=== PATIENT | female | born 1990 | race Caucasian/White ===

== ENCOUNTER 2021-05-10 15:05 | Outpatient (CLI) | payer OTHER ==
[~2021-05-10 15:05] MED LIST: FLAGYL500 MG PO; IBUPROFEN600 MG PO; MACROBID 100 M100 MG PO; PYRIDIUM200 MG PO
== END 2021-05-10 18:48 | disposition home or self-care (01) ==
LOC: GENOP 15:05
DX: O99.891 Other specified diseases and conditions complicating pregnancy (principal); R10.30 Lower abdominal pain, unspecified; M54.9 Dorsalgia, unspecified; O99.352 Diseases of the nervous system complicating pregnancy, second trimester; G43.909 Migraine, unspecified, not intractable, without status migrainosus; O99.342 Other mental disorders complicating pregnancy, second trimester; F32.9 Major depressive disorder, single episode, unspecified; O99.332 Smoking (tobacco) complicating pregnancy, second trimester; F17.290 Nicotine dependence, other tobacco product, uncomplicated; O99.212 Obesity complicating pregnancy, second trimester; E66.01 Morbid (severe) obesity due to excess calories; Z87.440 Personal history of urinary (tract) infections; Z88.5 Allergy status to narcotic agent; Z79.899 Other long term (current) drug therapy; Z3A.27 27 weeks gestation of pregnancy
CPT/HCPCS: 59025; 81001; 82731; 96372

== ENCOUNTER 2021-05-27 15:08 | Outpatient (CLI) | payer OTHER | END 2021-05-27 20:41 | disposition home or self-care (01) | LOC: GENOP 15:08 | DX: O47.03 False labor before 37 completed weeks of gestation, third trimester (principal); O99.343 Other mental disorders complicating pregnancy, third trimester; F32.9 Major depressive disorder, single episode, unspecified; O99.353 Diseases of the nervous system complicating pregnancy, third trimester; G43.909 Migraine, unspecified, not intractable, without status migrainosus; O99.213 Obesity complicating pregnancy, third trimester; E66.9 Obesity, unspecified; O99.323 Drug use complicating pregnancy, third trimester; F11.20 Opioid dependence, uncomplicated; O99.333 Smoking (tobacco) complicating pregnancy, third trimester; F17.290 Nicotine dependence, other tobacco product, uncomplicated; Z87.440 Personal history of urinary (tract) infections; Z88.5 Allergy status to narcotic agent; Z3A.29 29 weeks gestation of pregnancy | CPT/HCPCS: 96372; G0463; J3105 ==

== ENCOUNTER 2021-07-22 16:34 | Outpatient (CLI) | payer OTHER | END 2021-07-22 21:00 | disposition home or self-care (01) | LOC: GENOP 16:34 | DX: O47.1 False labor at or after 37 completed weeks of gestation (principal); Z3A.37 37 weeks gestation of pregnancy | CPT/HCPCS: 81001; 96360; 96361; 96367; J0696; J7120 ==

== ENCOUNTER 2021-08-01 16:27 | Inpatient (IN) | payer OTHER ==
[~2021-08-01] VITALS: Ht 154.9 cm; Wt 117.9 kg
[2021-08-01 17:52] LABS: HEMOGLOBIN 10.1 gm/dl (12.3-15.3); RED BLOOD COUNT 3.95 M/UL (4.00-5.10); WHITE BLOOD COUNT 15.6 K/UL (4.5-11.0)
[2021-08-01] MEDS ORDERED: SUBOXONE 12 MG1 EACH SL (21:35)
[2021-08-02] MEDS ORDERED: HEMOCYTE324 MG PO (16:53)
[2021-08-02] MEDS ORDERED: COLACE100 MG PO (16:53)
[2021-08-02] MEDS ORDERED: IBUPROFEN800 MG PO (16:53)
[2021-08-03 07:37] LABS: HEMOGLOBIN 8.8 gm/dl (12.3-15.3)
[2021-08-04] MEDS ORDERED: BUPRENORPHIN-N1 EACH SL (10:51)
== END 2021-08-04 12:17 | disposition home or self-care (01) | DRG 806 ==
LOC: GENOP 16:27 → OB 17:15
PROVIDERS: Obstetrics & Gynecology; ADMIT Obstetrics & Gynecology
PROC: 4A1HXCZ Monitoring of Products of Conception, Cardiac Rate, External Approach (ICD-10-PCS; 2021-08-01)
PROC: 10E0XZZ Delivery of Products of Conception, External Approach (ICD-10-PCS; principal; 2021-08-02)
PROC: 10907ZC Drainage of Amniotic Fluid, Therapeutic from Products of Conception, Via Natural or Artificial Opening (ICD-10-PCS; 2021-08-02)
PROC: 3E033VJ Introduction of Other Hormone into Peripheral Vein, Percutaneous Approach (ICD-10-PCS; 2021-08-02)
DX: O99.214 Obesity complicating childbirth (principal); F11.20 Opioid dependence, uncomplicated; Z37.0 Single live birth; G36.0 Neuromyelitis optica [Devic]; O99.354 Diseases of the nervous system complicating childbirth; Z20.822 Contact with and (suspected) exposure to COVID-19; O99.324 Drug use complicating childbirth; O76 Abnormality in fetal heart rate and rhythm complicating labor and delivery; Z3A.38 38 weeks gestation of pregnancy; O62.2 Other uterine inertia
CPT/HCPCS: 36415; 80307; 81001; 85014; 85018; 85025; 90715; J2210; J2590; J3430; J7120